=== PATIENT | male | born 1955 | race Caucasian/White ===

== ENCOUNTER 2024-06-12 11:45 | Inpatient (IN) | payer MEDICAID ==
[~2024-06-12] VITALS: Ht 172.7 cm; Wt 78.0 kg
[2024-06-12] MEDS: SODIUM CHLORIDE 0.9% (SEPSIS BOLUS) IV ONE (12:31)
[2024-06-12 12:33] LABS: BASOPHILS % 0.4 % (0.0-2.0); EOSINOPHILS % 1.2 % (0.0-5.0); HEMATOCRIT. 36.8 % (42.0-52.0); HEMOGLOBIN. 11.5 g/dL (14.0-18.0); LYMPHOCYTES % 14.5 % (20.0-50.0); MEAN CORPUSCULAR HEMOGLOBIN 28.4 pg (28.0-32.0); MEAN CORPUSCULAR HGB CONC 31.1 g/dL (31.0-37.0); MEAN CORPUSCULAR VOLUME 91.3 fL (80.0-94.0); MEAN PLATELET VOLUME 7.4 fl (7.4-10.4); MONOCYTES % 9.4 % (2.0-8.0); NEUTROPHILS % 74.5 % (40.0-76.0); PLATELET 292 x1000/uL (130-400); RED BLOOD CELL COUNT 4.04 mill/uL (4.7-6.1); RED CELL DISTRIBUTION WIDTH 15.5 % (11.6-14.6); WHITE BLOOD COUNT 10.8 x1000/uL (4.5-11.0)
[2024-06-12] MEDS: PIPERACILLIN/TAZO 3.375G/50ML 50 ML IV ONE (12:38)
[2024-06-12 12:42] LABS: INR 1.1; PROTHROMBIN TIME 12.5 sec (9.6-11.0)
[2024-06-12 12:52] LABS: CHLORIDE 111 mEq/L (98-107); POTASSIUM 3.6 mEq/L (3.5-5.1); SODIUM 145 mEq/L (136-145)
[2024-06-12 12:53] LABS: CALCIUM 8.9 mg/dL (8.7-10.4); CARBON DIOXIDE 27 mEq/L (21-32)
[2024-06-12 12:58] LABS: CREATININE 1.5 mg/dL (0.6-1.3); GLUCOSE 122 mg/dL (70-105); UREA NITROGEN BLOOD 19 mg/dL (9-23)
[2024-06-12 12:59] LABS: TROPONIN I HIGH SENSITIVITY 13 ng/L (3.0-53)
[2024-06-12 13:00] LABS: ALANINE AMINOTRANSFERASE 16 IU/L (10-49); ALBUMIN 3.9 g/dL (3.2-4.8); ASPARTATE AMINOTRANSFERASE 16 IU/L (<34); BILIRUBIN DIRECT 0.1 mg/dL (<=3.0); BILIRUBIN TOTAL 0.6 mg/dL (0.1-1.0)
[2024-06-12 13:26] LABS: PROTEIN TOTAL 6.1 g/dL (6.0-8.3)
[2024-06-12] MEDS: VANCOMYCIN 1G PREMIX 200 ML IV ONE (13:36)
[2024-06-12] MEDS ORDERED: ONDANSETRON HCL 4MG/2ML INJ IV PRN (14:45)
[2024-06-12] MEDS ORDERED: ACETAMINOPHEN 325MG TABLET PO PRN (14:45)
[2024-06-12] MEDS: ENOXAPARIN 80MG/0.8ML SYR SUBCUT SCH (15:27)
[2024-06-12] MEDS: SODIUM CHLORIDE 0.9% 1,000 ML IV SCH (15:27)
[2024-06-12 15:37] LABS: CLARITY URINE CLEAR (CLEAR); COLOR URINE YELLOW (YELLOW); GLUCOSE URINE NEGATIVE (NEGATIVE); KETONES URINE NEGATIVE (NEGATIVE); LEUKOCYTE ESTERASE URINE NEGATIVE (NEGATIVE); NITRITE URINE NEGATIVE (NEGATIVE); OCCULT BLOOD URINE NEGATIVE (NEGATIVE); PROTEIN URINE NEGATIVE (NEGATIVE); SPECIFIC GRAVITY URINE 1.013 (1.005-1.030); UROBILINOGEN URINE 0.2 E.U./dL (0.2-1.0)
[2024-06-12 15:50] LABS: *AMPHETAMINES SCREEN URINE NEGATIVE (NEGATIVE)
[2024-06-12 15:51] LABS: *BARBITURATES SCREEN URINE NEGATIVE (NEGATIVE); *BENZODIAZEPINES SCREEN URINE NEGATIVE (NEGATIVE); *COCAINE SCREEN URINE NEGATIVE (NEGATIVE); CANNABINOID URINE SCREEN NEGATIVE (NEGATIVE); ECSTASY MDMA SCREEN URINE NEGATIVE (NEGATIVE); METHADONE URINE SCREEN NEGATIVE (NEGATIVE); OPIATES URINE SCREEN NEGATIVE (NEGATIVE); PHENCYCLIDINE URINE SCREEN NEGATIVE (NEGATIVE)
[2024-06-12] MEDS ORDERED: METO-396 PO (17:06)
[2024-06-12] MEDS ORDERED: AMIO100T4 PO (17:06)
[2024-06-12] MEDS ORDERED: RIVA20TA PO (17:06)
[2024-06-12] MEDS ORDERED: LOSA100T33 PO (17:06)
[2024-06-12] MEDS ORDERED: HYDR12.54 MT (17:06)
[2024-06-12] MEDS ORDERED: GABA-1180 PO (17:06)
[2024-06-12] MEDS ORDERED: ATOR40TA70 PO (17:06)
[2024-06-12] MEDS ORDERED: ROPI2TAB28 PO (17:06)
[2024-06-12] MEDS ORDERED: CALC-38 MT (17:06)
[2024-06-12] MEDS ORDERED: CARB-32 PO (17:06)
[2024-06-12 20:00] VITALS: BP 109/74; PULSE 71; RESP 18; TEMP 36.28068; TEMP 36.3068; O2SAT 99
[2024-06-12] MEDS ORDERED: ZOLPIDEM TARTRATE 5MG TABLET PO PRN (20:00)
[2024-06-12] MEDS: PIPERACILLIN/TAZO 3.375G/50ML 50 ML IV SCH (22:39)
[2024-06-13] VITALS (8 sets, daily range): BP systolic 93–150; BP diastolic 63–87; PULSE 62–78; RESP 2–20; TEMP 36.55848–37.33632; O2SAT 78–100
[2024-06-13] MEDS: VANCOMYCIN 500MG PREMIX 100 ML IV SCH (00:30)
[2024-06-13 00:41] LABS: CREATINE KINASE 36 IU/L (46-171)
[2024-06-13 00:43] LABS: TROPONIN I HIGH SENSITIVITY 12 ng/L (3.0-53)
[2024-06-13 07:04] LABS: BASOPHILS % 0.7 % (0.0-2.0); EOSINOPHILS % 1.6 % (0.0-5.0); HEMATOCRIT. 30.8 % (42.0-52.0); HEMOGLOBIN. 9.7 g/dL (14.0-18.0); LYMPHOCYTES % 21.1 % (20.0-50.0); MEAN CORPUSCULAR HEMOGLOBIN 28.3 pg (28.0-32.0); MEAN CORPUSCULAR HGB CONC 31.6 g/dL (31.0-37.0); MEAN CORPUSCULAR VOLUME 89.6 fL (80.0-94.0); MEAN PLATELET VOLUME 7.6 fl (7.4-10.4); MONOCYTES % 8.8 % (2.0-8.0); NEUTROPHILS % 67.8 % (40.0-76.0); PLATELET 263 x1000/uL (130-400); RED BLOOD CELL COUNT 3.43 mill/uL (4.7-6.1); RED CELL DISTRIBUTION WIDTH 15.5 % (11.6-14.6); WHITE BLOOD COUNT 7.7 x1000/uL (4.5-11.0)
[2024-06-13 07:34] LABS: POTASSIUM 3.9 mEq/L (3.5-5.1)
[2024-06-13 07:35] LABS: CALCIUM 8.6 mg/dL (8.7-10.4)
[2024-06-13 07:40] LABS: CREATININE 1.2 mg/dL (0.6-1.3)
[2024-06-13] MEDS ORDERED: ENOXAPARIN 40MG/0.4ML SYR SUBCUT SCH (09:00)
[2024-06-13] MEDS: PANTOPRAZOLE SODIUM 40 MG/VIAL IV SCH (09:35)
[2024-06-13] MEDS ORDERED: NALOXONE HCL 0.4MG/ML VIAL IV PRN (14:45)
[2024-06-13] MEDS: GABAPENTIN 300MG CAPSULE PO SCH (15:23)
[2024-06-13] MEDS: ASPIRIN 81MG EC TABLET PO SCH (15:24)
[2024-06-13] MEDS: AMIODARONE 200MG TABLET PO SCH (15:24)
[2024-06-13] MEDS: HYDROCODONE/ACETAMINOPHEN 5/325MG TABLET PO PRN (15:24)
[2024-06-13] MEDS: IPRATROPIUM/ALBUTEROL 0.5-3(2.5)MG/3ML NEB NEB PRN (16:54)
[2024-06-13] MEDS: IPRATROPIUM/ALBUTEROL 0.5-3(2.5)MG/3ML NEB HHN SCH (18:00)
[2024-06-13] MEDS ORDERED: ATORVASTATIN CALCIUM 40MG TABLET PO SCH (21:00)
[2024-06-13] MEDS: ATORVASTATIN CALCIUM 40MG TABLET PO SCH (21:06)
[2024-06-13] MEDS: CARBIDOPA/LEVODOPA 25/100MG TABLET PO SCH (22:02)
[2024-06-13] MEDS: ROPINIROLE HCL 1MG TABLET PO SCH (22:02)
[2024-06-14] VITALS (9 sets, daily range): BP systolic 103–127; BP diastolic 60–88; PULSE 60–144; RESP 16–22; TEMP 36.28068–36.89184; O2SAT 72–100
[2024-06-14] MEDS: IOHEXOL-350 100 ML BOTTLE ONE (00:14)
[2024-06-14] MEDS: CLOPIDOGREL 75MG TABLET PO SCH (09:02)
[2024-06-14] MEDS: LOSARTAN 100 MG TABLET PO SCH (09:02)
[2024-06-14] MEDS: METOPROLOL SUCCINATE 25MG ER TABLET PO SCH (09:03)
[2024-06-14] MEDS: METOPROLOL SUCCINATE 50MG ER TABLET PO NR (14:15)
[2024-06-14] MEDS: DIGOXIN 500MCG/2ML AMP IV NR (16:20)
[2024-06-14] MEDS: VANCOMYCIN 750MG PREMIX 150 ML IV SCH (21:02)
[2024-06-15] VITALS (10 sets, daily range): BP systolic 94–126; BP diastolic 67–88; PULSE 69–120; RESP 16–20; TEMP 36.55848–36.89184; O2SAT 95–97
[2024-06-15] MEDS: FAMOTIDINE 20MG/2ML VIAL IV SCH (08:44)
[2024-06-15] MEDS: METOPROLOL SUCCINATE 50MG ER TABLET PO SCH (13:45)
[2024-06-15] MEDS ORDERED: CLOP-31 PO (15:54)
[2024-06-15] MEDS ORDERED: LIP40 PO (15:54)
[2024-06-15] MEDS ORDERED: ASPI-1406 PO (15:54)
[2024-06-15] MEDS ORDERED: METO-385 PO (15:54)
[2024-06-15] MEDS ORDERED: AMOX1TAB16 MT (15:55)
[2024-06-15 17:18] LABS: BG BASE EXCESS 4.3 mmol/L (-2.0-3.0); BG CARBOXYHEMOGLOBIN 0.3 % (0.5-1.5); BG DEOXYHEMOGLOBIN 6.1 % (0.0-5.0); BG FRACTION INSPIRED OXYGEN 32; BG METHEMOGLOBIN 0.3 % (0.5-1.5); BG OXYGEN SATURATION 93.9 % (94.0-98.0); BG OXYHEMOGLOBIN 93.3 % (94.0-98.0); BG PCO2 43.8 mmHg (35.0-48.0); BG PH 7.439 (7.350-7.450); BG PO2 68.1 mmHg (83.0-108.0); BG SAMPLE SITE RIGHT BRACHIAL; BG TOTAL HEMOGLOBIN 11.7 g/dL (13.5-17.5); BG VENT MODE NASAL CANNULA
[2024-06-15] MEDS: GUAIFENESIN-DM 200MG-20MG/10ML UDC PO PRN (20:46)
[2024-06-16] VITALS (8 sets, daily range): BP systolic 106–118; BP diastolic 70–75; PULSE 76–120; RESP 18–20; TEMP 36.61404–36.89184; O2SAT 93–99
[2024-06-16] MEDS: METOPROLOL SUCCINATE 50MG ER TABLET PO SCH (08:54)
[2024-06-16] MEDS ORDERED: APIX5TAB MT (15:46)
== END 2024-06-16 20:30 | disposition home or self-care (01) | DRG 871 ==
LOC: ER 11:45 → 5WST 13:17 → EDBEDREQ 13:19 → 8WST 06-13 08:33
PROVIDERS: ADMIT Internal Medicine; ATTEND Internal Medicine
DX: A41.9 Sepsis, unspecified organism (principal); J69.0 Pneumonitis due to inhalation of food and vomit; J96.01 Acute respiratory failure with hypoxia; I82.411 Acute embolism and thrombosis of right femoral vein; I82.431 Acute embolism and thrombosis of right popliteal vein; N17.9 Acute kidney failure, unspecified; J98.11 Atelectasis; I71.21 Aneurysm of the ascending aorta, without rupture; M47.812 Spondylosis without myelopathy or radiculopathy, cervical region; E11.22 Type 2 diabetes mellitus with diabetic chronic kidney disease; I65.23 Occlusion and stenosis of bilateral carotid arteries; I12.9 Hypertensive chronic kidney disease with stage 1 through stage 4 chronic kidney disease, or unspecified chronic kidney disease; I48.91 Unspecified atrial fibrillation; Z86.73 Personal history of transient ischemic attack (TIA), and cerebral infarction without residual deficits; Z79.899 Other long term (current) drug therapy
CPT/HCPCS: 36415; 36600; 70496; 70498; 70551; 71045; 71275; 74230; 80048; 80061; 80076; 80202; 80305; 80320; 81003; 82375; 82550; 82805; 83036; 83605; 84145; 84484; 85025; 92610; 93005; 93306; 93970; 94640; 97162; 97166; 97535; 99291; C1893; J1160; J1650; J2470; J2543; J3370; J3490; J7030; Q9967; G0480

== ENCOUNTER 2025-02-01 17:50 | Inpatient (IN) | payer BC, MEDICAID, MEDICARE ==
[~2025-02-01] VITALS: Ht 170.2 cm; Wt 93.0 kg
[~2025-02-01 17:50] MED LIST: AMIO100T4 PO; AMOX1TAB16 MT; APIX5TAB MT; ASPI-1406 PO; ATOR40TA70 PO; CALC-38 MT; CARB-32 PO; CLOP-31 PO; HYDR12.54 MT; LIP40 PO; LOSA100T33 PO; METO-385 PO; METO-396 PO; RIVA20TA PO; ROPI2TAB28 PO
[2025-02-01] MEDS ORDERED: PIPERACILLIN/TAZO 3.375G/50ML 50 ML IV ONE (18:15)
[2025-02-01] MEDS ORDERED: VANCOMYCIN 1G PREMIX 200 ML IV ONE (18:15)
[2025-02-01] MEDS ORDERED: MORPHINE SULFATE 4 MG/ML INJ (FOR IV/IM USE) IV ONE (18:15)
[2025-02-01 18:37] LABS: BASOPHILS % 0.4 % (0.0-2.0); EOSINOPHILS % 1.9 % (0.0-5.0); HEMATOCRIT. 38.2 % (42.0-52.0); HEMOGLOBIN. 12.4 g/dL (14.0-18.0); LYMPHOCYTES % 12.8 % (20.0-50.0); MEAN PLATELET VOLUME 7.7 fl (7.4-10.4); MONOCYTES % 12.5 % (2.0-8.0); NEUTROPHILS % 72.4 % (40.0-76.0); PLATELET 209 x1000/uL (130-400); RED BLOOD CELL COUNT 4.50 mill/uL (4.7-6.1); RED CELL DISTRIBUTION WIDTH 15.0 % (11.6-14.6)
[2025-02-01 18:47] LABS: INR 1.1
[2025-02-01 18:52] LABS: CREATININE 1.0 mg/dL (0.6-1.3)
[2025-02-01 18:53] LABS: TROPONIN I HIGH SENSITIVITY 10 ng/L (3.0-53); UREA NITROGEN BLOOD 14 mg/dL (9-23)
[2025-02-01 18:54] LABS: ASPARTATE AMINOTRANSFERASE 15 IU/L (<34)
[2025-02-01 18:55] LABS: BILIRUBIN DIRECT 0.5 mg/dL (<=3.0); BILIRUBIN TOTAL 1.6 mg/dL (0.1-1.0); PROTEIN TOTAL 6.4 g/dL (6.0-8.3)
[2025-02-01] MEDS: SODIUM CHLORIDE 0.9% (SEPSIS BOLUS) IV ONE (19:56)
[2025-02-01] MEDS: PIPERACILLIN/TAZO 3.375G/50ML 50 ML IV NR (19:56)
[2025-02-01] MEDS: MORPHINE SULFATE 4 MG/ML INJ (FOR IV/IM USE) IV NR (20:15)
[2025-02-01] MEDS: DILTIAZEM HCL 5MG/ML 5ML VIAL IV ONE ×2 (21:29→22:11)
[2025-02-01] MEDS: ENOXAPARIN 80MG/0.8ML SYR SUBCUT NR (21:37)
[2025-02-01 21:43] LABS: CLARITY URINE CLEAR (CLEAR); COLOR URINE DARK YELLOW (YELLOW); GLUCOSE URINE NEGATIVE (NEGATIVE); KETONES URINE 3+ (NEGATIVE); LEUKOCYTE ESTERASE URINE NEGATIVE (NEGATIVE); NITRITE URINE NEGATIVE (NEGATIVE); OCCULT BLOOD URINE NEGATIVE (NEGATIVE); PH URINE 6.0 (4.5-8.0); PROTEIN URINE 1+ (NEGATIVE); SPECIFIC GRAVITY URINE 1.020 (1.005-1.030); UROBILINOGEN URINE 1.0 E.U./dL (0.2-1.0)
[2025-02-01] MEDS: VANCOMYCIN 1G PREMIX 200 ML IV NR (21:44)
[2025-02-01] MEDS: DILTIAZEM HCL 60MG TABLET PO ONE (22:10)
[2025-02-01 22:27] LABS: BACTERIA URINE TRACE; RBC URINE NONE SEEN /hpf (0-2); SQUAMOUS EPITHELIAL CELL URINE FEW /lpf (RARE/1+); WBC URINE 0-2 /hpf (0-2)
[2025-02-01 22:32] VITALS: BP 120/74; PULSE 100; RESP 18; TEMP 36.8; O2SAT 88
[2025-02-01] MEDS ORDERED: IOHEXOL-350 100 ML BOTTLE ONE (23:05)
[2025-02-02] VITALS: BP 118/70; PULSE 114; RESP 18; TEMP 36.5; O2SAT 97
[2025-02-02] MEDS ORDERED: NALOXONE HCL 0.4MG/ML VIAL IV PRN (01:30)
[2025-02-02 04:00] VITALS: BP 109/71; PULSE 83; RESP 18; TEMP 36.9; O2SAT 95
[2025-02-02] MEDS: DILTIAZEM HCL 60MG TABLET PO SCH (05:31)
[2025-02-02 08:09] VITALS: BP 110/70; PULSE 109; RESP 18; TEMP 36.1; O2SAT 98
[2025-02-02] MEDS: HYDROCODONE/ACETAMINOPHEN 5/325MG TABLET PO PRN (09:56)
[2025-02-02] MEDS: METOPROLOL TARTRATE 100MG TABLET PO SCH (09:57)
[2025-02-02] MEDS: ENOXAPARIN 80MG/0.8ML SYR SUBCUT SCH (09:58)
[2025-02-02 11:49] VITALS: BP 95/66; PULSE 78; RESP 20; TEMP 36.7; O2SAT 100
[2025-02-02 15:50] VITALS: BP 103/76; PULSE 86; RESP 18; TEMP 36.7; O2SAT 94
[2025-02-02 20:00] VITALS: BP 96/69; PULSE 95; RESP 18; TEMP 37.7; O2SAT 95
[2025-02-02] MEDS: SENNOSIDES 8.6MG TABLET PO SCH (21:08)
[2025-02-03] VITALS: BP 114/75; PULSE 104; RESP 18; TEMP 37.5; O2SAT 93
[2025-02-03] MEDS: HYDROCODONE/ACETAMINOPHEN 10/325MG TABLET PO PRN (01:00)
[2025-02-03 04:00] VITALS: BP 115/78; PULSE 81; RESP 18; TEMP 37.2; O2SAT 98
[2025-02-03 08:00] VITALS: BP 126/73; PULSE 94; RESP 20; TEMP 36; O2SAT 99
[2025-02-03] MEDS: APIXABAN 5 MG TABLET PO SCH (09:04)
[2025-02-03] MEDS: DOCUSATE SODIUM 250MG CAPSULE PO SCH (09:05)
[2025-02-03 12:00] VITALS: BP 109/74; PULSE 81; RESP 20; TEMP 36.1; O2SAT 100
[2025-02-03 16:00] VITALS: BP 112/79; PULSE 85; RESP 18; TEMP 36.5; O2SAT 100
[2025-02-03 16:54] VITALS: BP 112/79; PULSE 85; TEMP 97.7; O2SAT 98
== END 2025-02-03 19:15 | disposition home or self-care (01) | DRG 308 ==
LOC: ER 17:50 → EDBEDREQ 18:33 → 7WST 21:21 → EDBEDREQ 21:23 → EDBEDREQTM 21:23 → ENRESERV 21:40
PROVIDERS: ADMIT Internal Medicine; ATTEND Internal Medicine
DX: I48.91 Unspecified atrial fibrillation (principal); I50.33 Acute on chronic diastolic (congestive) heart failure; I11.0 Hypertensive heart disease with heart failure; Z96.653 Presence of artificial knee joint, bilateral; E11.9 Type 2 diabetes mellitus without complications; Z95.828 Presence of other vascular implants and grafts; Z79.01 Long term (current) use of anticoagulants; Z79.899 Other long term (current) drug therapy; Z86.711 Personal history of pulmonary embolism; Z86.718 Personal history of other venous thrombosis and embolism
CPT/HCPCS: 36415; 71045; 71275; 74176; 80048; 80076; 81003; 83605; 83880; 84145; 84484; 85025; 85379; 86850; 86900; 93005; 93970; 99285; J1650; J2270; J2543; J3370; J3490; J7030; Q9967